=== PATIENT | female | born 1970 | race Caucasian/White ===

== ENCOUNTER 2016-11-30 11:31 | Emergency (ER) | payer BC ==
[2016-11-30] MEDS ORDERED: diPHENhydraMINE IV* 50 MG/ML 1 ml VIAL (BENADRYL) IV ONE (12:32)
[2016-11-30] MEDS ORDERED: Metoclopramide IV* 5 MG/ML 2 ML VIAL IV ONE (12:32)
[2016-11-30] MEDS ORDERED: Ketorolac INJ* 30 MG/ML 1 ML VIAL IV PUSH ONE (12:32)
[2016-11-30] MEDS ORDERED: Levofloxacin 750 MG IVPREMIX(* 750 MG/150 ML BAG IVPB ONE (12:32)
--- NOTE | 2016-11-30 14:40 | ED ---
Chantel Calderon Matthew, scribed for Connor Caicedo MD on 11/30/16 at 1228 . Headache - HPI Summary HPI Summary: A 46 y/o female presents to the ED with a constant frontal headache since this morning. The pain is rated 8/10 in severity. Associated symptoms include a sinus infection with two rounds of Abx, which included Amoxicillin and z-pack. She also has sinus pressure, cough, rhinorrhea - green discharge, and post nasal drip. She denies neck pain. The patient finished the Z-Pack yesterday. The patient went to [facility] today and was referred to the the ED. She has a Hx of sinus infection, which needed more than two rounds of Abx. - History Of Current Complaint Chief Complaint: EDHeadache Stated Complaint: HEADACHE Time Seen by Provider: 11/30/16 12:19 Hx Obtained From: Patient Onset/Duration: Sudden Onset, Started hours ago, Still Present Initially Headache Was: Initial Pain Scale(0-10)= - 8 Currently Pain Is: Current Pain Scale(0-10)= - 8 Timing: Constant Location of Headache: Frontal Aggravating Factor: Nothing Allevating Factors: Nothing Associated Signs And Symptoms: Sinus Pressure - Allergies/Home Medications Allergies/Adverse Reactions: Allergies Allergy/AdvReac Type Severity Reaction Status Date / Time ENVIRONMENTAL Allergy Runny Nose Uncoded 11/30/16 11:38 PMH/Surg Hx/FS Hx/Imm Hx Endocrine/Hematology History: Denies: Hx Diabetes, Hx Sickle Cell Disease Cardiovascular History: Denies: Hx Hypertension, Hx Pacemaker/ICD, Other Cardiovascular Problems/ Disorders Respiratory History: Reports: Hx Asthma - USES INHALERS Denies: Other Respiratory Problems/Disorders GI History: Reports: Hx Gastroesophageal Reflux Disease - ON MEDICATION History: Denies: Hx Renal Disease, Other Problems/Disorders Musculoskeletal History: Reports: Hx Arthritis - LEFT THUMB, KNEES, RT HAND, Hx Osteoporosis, Hx Scoliosis - MILD, LOWER BACK Denies: Hx Rheumatoid Arthritis Sensory History: Reports: Hx Contacts or Glasses - ADVISED TO WEAR GLASSES THE DAY OF SURGERY Denies: Hx Hearing Aid Opthamlomology History: Reports: Hx Contacts or Glasses - ADVISED TO WEAR GLASSES THE DAY OF SURGERY Neurological History: Reports: Hx Headaches, Hx Migraine - IN THE PAST Denies: Other Neuro Impairments/Disorders Psychiatric History: Reports: Hx Anxiety - IN THE PAST, Hx Depression - IN THE PAST Denies: Hx Panic Disorder - Surgical History Surgery Procedure, Year, and Place: 1985 BUNION REMOVAL/ HAMMER TOE BOTH FEET, [place]. RIGHT KNEE, [place]. 08/07 LEFT HAND TENDON SURGERY [facility]2 [facility]. LEFT HAND BASILAR JOINT ARTHRITIS SURGERY;. 2006 RIGHT PINKY FINGER TENDON REPAIR,. 2007 RIGHT CARPAL TUNNEL RELEASE [place]. 2010RT SMALL FINGER [facility]. YOUNG CHILD TONSILS,. 1998 HYSTERECTOMY [place]; Hx Anesthesia Reactions: No Infectious Disease History: No Infectious Disease History: Denies: Traveled Outside the [place] in Last 30 Days - Family History Family History: No FHx of malignant hyperthermia. No FHx of anesthesia reaction - Social History Alcohol Use: Weekly Alcohol Amount: 1-2 DRINKS/WEEK Substance Use Type: Reports: None Smoking Status (MU): Former Smoker Type: Cigarettes Amount Used/How Often: 1PPD 8 YRS Have You Smoked in the Last Year: No Review of Systems Constitutional: Negative ENT: Other - sinus pressure; post nasal drip Positive: Nasal Discharge - green color Cardiovascular: Negative Positive: Cough Gastrointestinal: Negative Genitourinary: Negative Musculoskeletal: Negative Negative: Myalgia Skin: Negative Positive: Headache - frontal Psychological: Normal All Other Systems Reviewed And Are Negative: Yes Physical Exam - Summary Physical Exam Summary: Vital signs: Reviewed Gen.: Patient is a well-developed and nourished male in no acute distress. Patient is lying comfortably on the stretcher. Head: Normacephalic and atraumatic. Positive maxillary, frontal sinus tenderness. Eyes: PERRLA, EOMI x2. Ears: Right and Left ear canal and TM WNL Nose and mouth: No pharyngeal erythema, positve nasal congestion with greenish discharge. Neck: Supple, no lymphadenopathy, no JVD Lungs: CTA B/L CVS: S1 & S2 present. No murmurs appreciated. Triage Information Reviewed: Yes Vital Signs On Initial Exam: Initial Vitals Temp Pulse Resp BP Pulse Ox 97.3 F 59 16 129/76 100 11/30/16 11:34 11/30/16 11:34 11/30/16 11:34 11/30/16 11:34 11/30/16 11:34 Vital Signs Reviewed: Yes Diagnostics - Vital Signs Vital Signs Temp Pulse Resp BP Pulse Ox 11/30/16 11:34 97.3 F 59 16 129/76 100 - Laboratory Lab Statement: Any lab studies that have been ordered have been reviewed, and results considered in the medical decision making process. Headache Course/Dx - Course Assessment/Plan: A 46 y/o female presents to the ED after transfer from urgent care with a cc of acute sinusitis and headache. The patient reports she has had two courses of Abx Amoxicillin and z-pack and is not improving. She reports that in the past she has had this type of sinusitis, which normal takes 3 courses of Abx. She denies fever, neck pain, and blurry vision. In the ED course the patient was given IV fluids, Reglan, Toradol, and Benadryl for the headache. She was started on Levaquin for sinusitis. The patient was instructed if this course doesnt work she should see an ENT for further work-up and management. I discussed all the findings and test results with the patient. Patient was instructed to return to the emergency room immediately if any of the symptoms return or worsens. Patient understands and agrees. Plan of care was discussed with the patient and patient understands and agrees with the plan of care. All questions were answered at patient satisfaction. There were no further complaints or concerns. Patient is alert and oriented x 3. Patient vital signs are stable. Patient is to follow up with primary care physician in the next 2 to 3 days. Patient understands and agrees. - Diagnoses Differential Diagnosis/HQI/PQRI: Migraine, Sinus Headache, Tension Headache, Viral Syndrome Provider Diagnoses: Sinus headache, Sinusitis Discharge - Discharge Plan Condition: Stable Disposition: HOME Patient Education Materials: Sinusitis (ED), Acute Headache (ED) Referrals: Julia Blanc MD [Primary Care Provider] - Additional Instructions: Please follow-up with your primary care physician. The documentation as recorded by the Chantel gao Matthew accurately reflects the service I personally performed and the decisions made by , Connor Caicedo MD.
[2016-11-30 14:48] VITALS: BP 113/67
== END 2016-11-30 14:47 | disposition home or self-care (01) ==
LOC: ED 11:31
DX: R51 Headache (principal); Z87.891 Personal history of nicotine dependence; R05 Cough; J32.9 Chronic sinusitis, unspecified
CPT/HCPCS: 96365; 96375; 99282; J1200; J1885; J2765

== ENCOUNTER 2017-08-01 06:50 | Day surgery (SDC) | payer BC ==
[~2017-08-01 06:50] MED LIST: Buffered Lidocaine 0.9% SYRIN* 5 ML/SYR SYRINGE INTRADERM ONE
[2017-08-01] MEDS ORDERED: ceFAZolin 2 GM PREMIX (*) 50 ML IVPB ONE (07:00)
[2017-08-01] MEDS ORDERED: Bupivacaine 0.25% SDV* 30 ML ONE (07:31)
[2017-08-01] MEDS ORDERED: fentaNYL* 50 MCG/ML 2 ML VIAL (100 MCG VIAL) ONE (07:55)
[2017-08-01] MEDS ORDERED: Midazolam* 1 MG/ML 2 ML VIAL (2 MG) ONE ×2 (07:55→08:14)
[2017-08-01] MEDS ORDERED: Mepivacaine 2% MPF (20 MG/ML)* 20 ML MPF ONE (08:11)
[2017-08-01] MEDS ORDERED: Lidocaine 2% PF * 5 ML VIAL ONE (08:35)
[2017-08-01] MEDS ORDERED: Ketorolac INJ* 30 MG/ML 1 ML VIAL ONE (08:35)
[2017-08-01] MEDS ORDERED: Dexamethasone IV* 4 MG/ML 1 ML (4 MG) ONE (08:35)
[2017-08-01] MEDS ORDERED: Famotidine IV* 10 MG/ML 2 ML (20 mg) ONE (08:35)
[2017-08-01] MEDS ORDERED: Propofol* 10 MG/ML 20 ML BTL IV PUSH ONE (08:35)
[2017-08-01] MEDS ORDERED: HYDROcodone/ACETAMIN 5-325 MG* 1 TAB PO PRN (09:02)
[2017-08-01] MEDS ORDERED: Acetaminophen TAB* 325 MG PO PRN (09:02)
[2017-08-01] MEDS ORDERED: Ondansetron INJ* 2 MG/ML VIAL IV PRN (09:02)
[2017-08-01] MEDS ORDERED: Levalbuterol 0.63MG/3ML NEB* UNIT OF USE INH PRN (09:02)
[2017-08-01] MEDS ORDERED: fentaNYL* 50 MCG/ML 2 ML VIAL (100 MCG VIAL) IV PRN (09:02)
[2017-08-01] MEDS ORDERED: DiMENhydriNATE IV* 50 MG/ML VIAL IV PUSH PRN (09:02)
[2017-08-01 10:05] VITALS: BP 111/71
--- NOTE | 2017-08-01 15:05 | OP ---
DATE OF OPERATION: 08/01/17 - [facility] DATE OF : 70 SURGEON: Santana Dong MD CAR RENTAL AGENT: ONIEL Gale ANESTHESIOLOGIST: Dr. Rosenbaum. ANESTHESIA: Supraclavicular block with MAC. PRE-OP DIAGNOSIS: Left elbow chronic lateral epicondylitis. POST-OP DIAGNOSIS: Left elbow chronic lateral epicondylitis. OPERATIVE PROCEDURE: Left elbow extensor carpi radialis brevis origin debridement. INDICATIONS: Zulma has had chronic lateral epicondylitis pain. She has had multiple injections. She has had therapy and bracing; it has all failed to relieve the pain. She talked about risks and benefits and wanted to proceed. FINDINGS: As expected. ESTIMATED BLOOD LOSS: 2 mL. COMPLICATIONS: None. DESCRIPTION OF PROCEDURE: Zulma was seen in the preoperative holding area. The correct site, side, and procedure were identified. We came back to the operating room. The arm was prepped and draped in the usual fashion. A formal time-out was performed after the block was performed. I began by making a 4 to 5-cm incision over the lateral aspect of the elbow centered over the radiocapitellar joint. The full-thickness flaps were raised off in the deep fascia. I then marked out the equator of the radiocapitellar joint line back up towards the mid portion of the lateral epicondyle. The muscular EDC and more tendinous ECRL tendons were visualized. I utilized the interval and created a split there. I came deep to this and excised all of the ECRB origin of the lateral epicondyle. It was indeed fishy and grayish and disorganized appearing. I did take a bit of the capsule with the debridement as well. Once I had completed the full debridement and there were nothing but clean healthy viable collagen tissue remaining, I went ahead and used the rongeur and the curette to roughen up the portion of the lateral epicondyle. The tendon was then repaired with 0 Vicryl suture. The operative area was then infiltrated with just a bit more 0.25% plain Marcaine and the skin was closed with 4-0 nylon suture. Wound was dressed with Xeroform, 4x4's, sterile Webril, and then a posterior slab with lateral buttress splint was placed. She was then woken up and taken to the recovery room in stable condition. [id number]/[facility] #: [id number] MTDD
== END 2017-08-01 10:16 | disposition home or self-care (01) ==
LOC: OR 06:50
PROVIDERS: ATTEND Orthopaedic Surgery Hand Surgery
DX: M77.12 Lateral epicondylitis, left elbow (principal); J45.909 Unspecified asthma, uncomplicated; K21.9 Gastro-esophageal reflux disease without esophagitis
CPT/HCPCS: 88305; J0670; J0690; J1100; J1885; J2250; J2704; J3010

== ENCOUNTER 2023-06-19 15:05 | Observation (INO) ==
[2023-06-19] MEDS ORDERED: Ondansetron ODT 4 mg TAB 4 MG TAB SL ONE (15:24)
[2023-06-19] MEDS ORDERED: Ketorolac *IM* INJ 60 MG/2 ML VIAL IM ONE (15:24)
[2023-06-19] MEDS ORDERED: NS 0.9% 1000 ml BAG 1,000 ML IV ONE (16:27)
[2023-06-19] MEDS ORDERED: Ondansetron 4 mg VIAL 2 MG/ML 2 ml VIAL IV PRN ×2 (18:06→18:25)
[2023-06-19] MEDS ORDERED: cefTRIAXone 2 GM ADDV.VIAL 2 GM in NS 0.9% 100 ml BAG 100 ML IV ONE (18:06)
[2023-06-19] MEDS ORDERED: Morphine 2 MG/ML SYRINGE IV PRN (18:09)
[2023-06-19] MEDS ORDERED: Albuterol HFA INHALER 8 gm MDI INH PRN (18:14)
[2023-06-19] MEDS ORDERED: NS 0.9% 1000 ml BAG 1,000 ML IV SCH (18:15)
[2023-06-19] MEDS ORDERED: Buffered Lidocaine 1% SYRIN 1 ml INTRADERM ONE (18:24)
[2023-06-19] MEDS ORDERED: fentaNYL 100 mcg/2 ml 50 MCG/ML VIAL IV PRN (18:25)
[2023-06-19] MEDS ORDERED: Naloxone 0.4 mg VIAL 0.4 mg/ml 1 ml VIAL IV PRN (18:25)
[2023-06-19] MEDS ORDERED: cefTRIAXone 2 gm/50 mL D5W 2 GM/50 ML BAG IV ONE (18:30)
[2023-06-19] MEDS ORDERED: Iohexol 180 (CONTRAST) 10 ML SDV IV ONE (18:31)
[2023-06-19 18:54] LABS: Calcium 8.7 mg/dL (8.6-10.3); Creatinine, Serum 0.89 mg/dL (0.51-0.95); Potassium 3.9 mmol/L (3.5-5.0); eGFR CKD-EPI 77.5 (>60)
[2023-06-19 19:00] LABS: Urine Appearance Turbid; Urine Bilirubin Negative (Negative); Urine Blood 3+ (Negative); Urine Color Yellow; Urine Glucose Negative (Negative); Urine Ketones Negative (Negative); Urine Nitrite Negative (Negative); Urine Protein Negative (Negative); Urine Specific Gravity 1.011 (1.002-1.030); Urine Urobilinogen Negative (Negative)
[2023-06-19] MEDS ORDERED: Lactated Ringers 1000 ml BAG 1,000 ML IV SCH (19:00)
[2023-06-19 19:04] LABS: Urine Bacteria Absent (Absent); Urine Red Blood Cell 3+(>10/hpf) (Absent); Urine White Blood Cell Absent (Absent)
[2023-06-19] MEDS ORDERED: Midazolam 2 mg/2 ml VIAL 1 mg/ml 2 ml VIAL (2 mg) ONE (19:04)
[2023-06-19] MEDS ORDERED: Famotidine IV 10 MG/ML 2 ml VIAL (20 mg) ONE (19:04)
[2023-06-19] MEDS ORDERED: Propofol 10 MG/ML 20 ML BTL ONE (19:12)
[2023-06-19] MEDS ORDERED: Dexamethasone IV 4 MG/ML VIAL 1 ml VIAL ONE (19:12)
[2023-06-19] MEDS ORDERED: Ondansetron 4 mg VIAL 2 MG/ML 2 ml VIAL ONE (19:12)
[2023-06-19] MEDS ORDERED: Lidocaine 2% PF 5 ML VIAL ONE (19:12)
[2023-06-19] MEDS ORDERED: fentaNYL 100 mcg/2 ml 50 MCG/ML VIAL ONE (19:16)
[2023-06-19 20:41] VITALS: BP 128/74
== END 2023-06-19 20:48 | disposition home or self-care (01) ==
LOC: EDHOLD 15:05 → ED 15:05 → EDHOLD 18:28
PROVIDERS: ADMIT Internal Medicine; ATTEND Internal Medicine